=== PATIENT | female | born 1985 | race Two or more races ===

== ENCOUNTER 2017-03-15 08:52 | Day surgery (SDC) | payer OTHER ==
[2017-03-15] VITALS (10 sets, daily range): BP systolic 104–133; BP diastolic 62–81
[~2017-03-15] VITALS: Ht 154.9 cm; Wt 74.8 kg
[~2017-03-15 08:52] MED LIST: EXCEDRIN MIGRA1 EACH PO; Ketorolac 30mg Inj ONE; LR 1000ml ONE; Lidocaine 1% MPF 10mg/ml 5ml ONE; Metoclopramide 10mg/2ml Inj ONE; Midazolam 2mg/2ml Inj ONE; NS Irrig 1000ml ONE; Propofol 10mg/ml 20ml IV ONE; Sterile Water Irrig 1000ml IRRIG ONE; ceFAZolin sod 1 GM in NS 55 ML IVPB ONE; fentaNYL 100 mcg/2 mL IV ONE
[2017-03-15] MEDS ORDERED: Dexamethasone 4mg/ml vial ONE (09:08)
[2017-03-15] MEDS ORDERED: Betadine 10% Oint 15gm TOPIC ONE (09:08)
[2017-03-15] MEDS ORDERED: Lidocaine 1% Plain 30 ml INJ ONE (09:08)
[2017-03-15] MEDS ORDERED: Bacitracin 50000 Units Vial ONE (09:09)
[2017-03-15] MEDS ORDERED: Bupivacaine 0.25% Inj 30ml INJ ONE (09:09)
[2017-03-15] MEDS ORDERED: CLARITIN10 M2 ORAL (10:04)
[2017-03-15 10:07] LABS: BASOPHILS % (AUTO) 0.9 % (0.0-2.0); EOSINOPHILS % (AUTO) 0.9 % (0.0-3.0); LYMPHOCYTES % (AUTO) 35.7 % (20.0-45.0); MEAN CORPUSCULAR HEMOGLOBIN 29.6 PG (27.0-31.0); MEAN CORPUSCULAR HGB CONC 32.6 G/DL (32.0-36.0); MEAN CORPUSCULAR VOLUME 91 FL (80-99); MEAN PLATELET VOLUME 6.5 FL (6.5-10.1); MONOCYTES % (AUTO) 10.3 % (1.0-10.0); NEUTROPHILS % (AUTO) 52.1 % (45.0-75.0); PLATELET COUNT 295 K/UL (150-450); WHITE BLOOD COUNT 3.8 K/UL (4.8-10.8)
[2017-03-15 10:17] LABS: INR 0.9 (0.9-1.1); PROTHROMBIN TIME 9.5 SEC (9.30-11.50)
[2017-03-15 10:25] LABS: ANION GAP 14 (5-15); CALCIUM 9.1 mg/dL (8.6-10.2); CARBON DIOXIDE 20 mEQ/L (20-30); CHLORIDE 101 mEQ/L (98-107); CREATININE 0.8 mg/dL (0.5-0.9); GLOMERULAR FILTRATION RATE > 60 mL/min (>60); HEMOLYSIS 90; POTASSIUM 4.3 mEQ/L (3.4-4.9); SODIUM 135 mEQ/L (135-145)
--- NOTE | 2017-03-15 10:46 | Anethesia Preoperative Eval ---
Anesthesia Pre-op PMH/ROS General Date of Evaluation: Mar 15, 2017 Anesthesiologist: Eladio ASA Score: ASA 2 Mallampati Score Class I : Soft palate, uvula, fauces, pillars visible Class II: Soft palate, uvula, fauces visible Class III: Soft palate, base of uvula visible Class IV: Only hard plate visible Mallampati Classification: Class II Surgeon: Tobias Diagnosis: Right bunion and 3rd and 4th hammertoes Surgical Procedure: Right foot bunionectomy and 3rd and 4th hammertoe correction Anesthesia History: none Family History: no anesthesia problems Allergies: Coded Allergies: LATEX, NATURAL RUBBER (Verified Allergy, Intermediate, 03/14/17) hives Medications: see eMAR Past Medical History Cardiovascular: Reports: other - HLD, Denies: CAD, HTN, [place], arrhythmia, valve dz Pulmonary: Denies: COPD, HUY, asthma, other Gastrointestinal/Genitourinary: Reports: GERD, Denies: CRI, ESRD, other Neurologic/Psychiatric: Denies: CVA, TIA, dementia, depression/anxiety, other Endocrine: Denies: DM, hypothyroidism, other, steroids HEENT: Denies: DEERING (L), DEERING (R), cataract (L), cataract (R), glaucoma, other Hematology/Immune: Denies: DVT, anemia, bleeding disorder, other Musculoskeletal/Integumentary: Denies: DDD, DJD, OA, RA, edema, other PSxH Narrative: Right wrist sx Anesthesia Pre-op Phys. Exam Physician Exam Last Vital Signs Date Time Temp Pulse Resp B/P Pulse Ox O2 Delivery O2 Flow Rate FiO2 03/15/17 10:01 97.7 63 18 111/69 96 Room Air Constitutional: NAD Cardiovascular: RRR Respiratory: CTA Airway Exam Mallampati Score: Class II MO: full ROM: full Teeth: intact Anesthesia Pre-op A/P Labs Hematology Test 03/15/17 09:50 White Blood Count 3.8 K/UL (4.8-10.8) L Red Blood Count 4.70 M/UL (4.20-5.40) Hemoglobin 13.9 G/DL (12.0-16.0) Hematocrit 42.7 % (37.0-47.0) Mean Corpuscular Volume 91 FL (80-99) Mean Corpuscular Hemoglobin 29.6 PG (27.0-31.0) Mean Corpuscular Hemoglobin Concent 32.6 G/DL (32.0-36.0) Red Cell Distribution Width 12.0 % (11.6-14.8) Platelet Count 295 K/UL (150-450) Mean Platelet Volume 6.5 FL (6.5-10.1) Neutrophils (%) (Auto) 52.1 % (45.0-75.0) Lymphocytes (%) (Auto) 35.7 % (20.0-45.0) Monocytes (%) (Auto) 10.3 % (1.0-10.0) H Eosinophils (%) (Auto) 0.9 % (0.0-3.0) Basophils (%) (Auto) 0.9 % (0.0-2.0) Coagulation Test 03/15/17 09:50 Prothrombin Time 9.5 SEC (9.30-11.50) Prothromb Time International Ratio 0.9 (0.9-1.1) Activated Partial Thromboplast Time 25 SEC (23-33) Chemistry Test 03/15/17 09:50 Sodium Level 135 mEQ/L (135-145) Potassium Level 4.3 mEQ/L (3.4-4.9) Chloride Level 101 mEQ/L (98-107) Carbon Dioxide Level 20 mEQ/L (20-30) Anion Gap 14 (5-15) Blood Urea Nitrogen 10 mg/dL (7-23) Creatinine 0.8 mg/dL (0.5-0.9) Estimat Glomerular Filtration Rate > 60 mL/min (>60) Glucose Level 98 mg/dL (74-106) Calcium Level 9.1 mg/dL (8.6-10.2) Urine Test Test 03/15/17 09:05 Urine HCG, Qualitative Negative Studies Pre-op Studies: EKG - sr Risk Assessment & Plan Assessment: ASA II Plan: GA Status Change Before Surgery: No Pre-Antibiotics Drug: Ancef 1g Given Within 1 Hr of Incision: Yes Time Given: 11:20 SAL PORTER M.D. Mar 15, 2017 10:45
--- NOTE | 2017-03-15 11:01 | Pre-Procedure Note/Attestation ---
Pre-Procedure Note/Attestation Complete Prior to Procedure Planned Procedure: left Procedure Narrative: correction of bunion with screw fixation right foot . correction of hammer toe with arthroplasty and k-wire fixation right 3rd and 4rth. Indications for Procedure Pre-Operative Diagnosis: right foot painful bunion . 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 I attest that, if there was a reasonable possibility of needing a blood transfusion, the patient (or the patient's legal sales representative printing supplies) was given the [place] [employer] standardized written summary, pursuant to the Scott Judit Blood Safety Act ([place] Health and Safety Code # 1645, as amended). I attest that I re-evaluated the patient just prior to the surgery and that there has been no change in the patient's H&P, except as documented below: PAKO GUZMAN DPM Mar 15, 2017 11:01
[2017-03-15] MEDS ORDERED: LR 1000ml 1,000 ML IVLG SCH (11:39)
--- NOTE | 2017-03-15 11:39 | 48 Hour Post Anesthesia Eval ---
Post Anesthesia Evaluation Procedure: Right bunionectomy and 3rd and 4th hammertoe correction Date of Evaluation: Mar 15, 2017 Blood Pressure Systolic: 119 0: 71 Pulse Rate: 69 Respiratory Rate: 16 O2 Sat by Pulse Oximetry: 100 Airway: patent Nausea: No Vomiting: No Pain Intensity: 0 Hydration Status: adequate Cardiopulmonary Status: at baseline Mental Status/LOC: patient returned to baseline Post-Anesthesia Complications: 0 Follow-up care needed: ready to discharge SAL PORTER M.D. Mar 15, 2017 11:39
--- NOTE | 2017-03-15 11:39 | Immediate Post-Op Evaluation ---
Immediate Post-Op Evalulation Immediate Post-Op Evalulation Procedure: Right bunionectomy and 3rd and 4th hammertoe correction Date of Evaluation: Mar 15, 2017 Time of Evaluation: 13:44 IV Fluids: 600 Blood Products: 0 Estimated Blood Loss: 5 Urinary Output: 0 Blood Pressure Systolic: 107 Blood Pressure Diastolic: 65 Pulse Rate: 71 Respiratory Rate: 17 O2 Sat by Pulse Oximetry: 100 Temperature (Fahrenheit): 98.5 Pain Score (1-10): 0 Nausea: No Vomiting: No Complications 0 Patient Status: awake, reacts, patent, none Hydration Status: adequate Drug: Ancef 1g Given Within 1 Hr of Incision: Yes Time Given: 07:20 SAL PORTER M.D. Mar 15, 2017 11:39
[2017-03-15] MEDS ORDERED: DiphenhydrAMINE 50mg/ml Inj IVP PRN (11:45)
[2017-03-15] MEDS ORDERED: fentaNYL 100 mcg/2 mL IV PRN (11:45)
[2017-03-15] MEDS ORDERED: Hydromorphone 0.5mg/0.5ml inj IVP PRN (11:45)
[2017-03-15] MEDS ORDERED: Metoclopramide 10mg/2ml Inj IVP PRN (11:45)
[2017-03-15] MEDS ORDERED: Midazolam 2mg/2ml Inj IVP PRN (11:45)
[2017-03-15] MEDS ORDERED: Ketorolac 30mg Inj IV PRN (11:45)
--- NOTE | 2017-03-15 13:31 | Brief Operative Note ---
Immediate Post Operative Note Operative Note Pre-op Diagnosis: right foot painful bunion . Hammer toe 3rd and 4rth right Procedure: correction of bunion with screw fixation and osteotomy , 3rd and 4rth hammer toe arthroplasty with k-wire fixation Post-op Diagnosis: same as pre op Surgeon: pako butler dpm Anesthesiologist: darren Bello Anesthesia: MAC Specimen: yes Complications: none Condition: stable Estimated Blood Loss: none Drains: none Tourniquet time: 101 Implant(s) used?: Yes PAKO BUTLER DPM Mar 15, 2017 13:31
--- NOTE | 2017-03-15 15:10 | Diagnostic Imaging Report ---
Indication: Pain Comparison: None Findings: 3 views of the right foot were obtained. Plaster cast noted. This is a recent surgery for hallux valgus correction and bunionectomy. A distal first metatarsal osteotomy was performed. A fixation screw noted. K wires traversing the interphalangeal joints of the third and fourth rays demonstrated with resection of portions of the head of the proximal phalanges for hammertoe correction. Impression: Postoperative changes as described above
--- NOTE | 2017-03-16 17:01 | Pre-op HX & Phy Repo 2 SIG ---
DATE OF ADMISSION: 03/15/2017 PODIATRIC PREOPERATIVE HISTORY AND PHYSICAL DATE OF SURGERY: 03/15/2017 at [facility]. HISTORY OF PRESENT ILLNESS: This is a 31-year-old female with progressively worsening pain and deformity of the right foot. The right foot has a painful medial prominence of the first metatarsophalangeal joint and the pain and deformity have been progressively worsened. She also is complaining of bilateral pain on the third and fourth digit with hyperkeratotic tissue on the PIP joint from the toe hammering. The pain and deformity has been worsened during the past few years. She has tried numerous conservative therapies including massage, padding, offloading, shoe gear modification, and activity modification as well as consulting doctors, but she continued to experience daily pain. She reports no recent illness. No recurrent nausea, vomiting, fever, chills, or shortness of breath. PAST MEDICAL HISTORY: Noncontributory. PAST SURGICAL HISTORY: No pertinent findings. MEDICATIONS: Tramadol and Tylenol. ALLERGIES: No known drug allergies. SOCIAL HISTORY: Denies alcohol, tobacco, or illicit drug use. FAMILY HISTORY: No pertinent findings. PHYSICAL EXAMINATION: VITAL SIGNS: Temperature 97.7 degrees, pulse 64, respiratory rate is 18, blood pressure is 120/70, and O2 saturation is 98% on room temperature. DERMATOLOGICAL: No open lesion. Mild hyperkeratosis at the medial aspect of the right first metatarsophalangeal joint as well as the PIPJ of the third and fourth toe as well as hyperkeratotic tissue on third and second. NEUROLOGICAL: Sensation intact to light touch. VASCULAR: Dorsalis pedis and posterior tibial are not palpable. No edema or erythema noticed. MUSCULOSKELETAL: Bony prominence at the right first metatarsal head and is tender to palpation. The hallux is abducted from the midline of the body and abutting on second toe. Hammering of the third and fourth digit at the head of the proximal phalanx being dorsiflexed in the frontal plane. Full muscle strength noticed bilaterally. LABORATORY DATA: Urine HCG is negative. ASSESSMENT AND PLAN: This is a 31-year-old female with right foot progressively worsened pain, bunion, and hammertoe deformity. The patient has tried numerous conservative measures. However, she is still experiencing daily pain. Recommended surgery as a next step in management. The risks, benefits, and alternatives were discussed with the patient in detail who understands and would like to proceed with surgical intervention. All patient's questions and concerns have been addressed. Thai Collado D.P.M. DR: DAVID JOB#: [id number] CC:
--- NOTE | 2017-03-16 21:47 | Operative Note - Dictated ---
DATE OF OPERATION: 03/15/2017 SURGEON: Thai Collado D.P.M. ANESTHESIOLOGIST: Dr. Hendricks. PREOPERATIVE DIAGNOSES: 1. Painful bunion, right foot. 2. Hammertoe, third digit. 3. Hammertoe, fourth digit, right. PROCEDURE: 1. Right foot bunionectomy with osteotomy and screw fixation. 2. Correction of hammertoe with arthroplasty at the PIP joint. 3. Correction of hammertoe, fourth toe with arthroplasty and K-wire fixation. HEMOSTASIS: Pneumatic ankle tourniquet set at 250 mmHg. ESTIMATED BLOOD LOSS: Less than 5 mL. MATERIALS USED: A 2-0 Vicryl, 3-0 Vicryl, 4-0 Vicryl, and a 22 mm Vilex cannulated screw 3.0 diameter and 0.35 K-wire x2. Injectables: A 20 mL consisting of 1:1 mixture of 0.25% plain Marcaine and 1% plain lidocaine was injected into the right foot preoperatively to the area of surgical intervention. Intraoperatively, the patient was injected with 6 mL of plain Marcaine with 6 mL of 4 mg/mL dexamethasone at the end of the surgical case. PATHOLOGY: Bone was resected from the right first metatarsal as well as the head of the proximal phalanx of the third and fourth, was sent to pathology for further study. DRESSING: Incision site was covered with Xeroform, Betadine ointment, 4 x 4 gauze, Kerlix, and Coban. A forefoot cast was applied to the right foot. CONDITION: Stable. Description of Procedure: The patient was brought into the operating room and was assisted onto the operating table in supine position. She was padded well to avoid any excessive pressure. The patient was then given 1 g of Ancef before the start of surgery. A time-out was performed. Cotton padding and pneumatic 18-inch ankle tourniquet was placed about the patient's right ankle. Following IV sedation, a local anesthesia block was administered to the right foot using 20 mL of 1:1 mixture of 0.25% Marcaine plain and 1% lidocaine plain. The foot was then scrubbed, prepped, and draped in the usual aseptic manner. Attention was then directed to the right foot. An Esmarch bandage was then utilized to exsanguinate the patient's right foot and the pneumatic ankle tourniquet was then inflated to 250 mmHg. Local anesthesia was checked by pinching the patient's skin using a rat-tooth forceps. The patient did not react to the stimuli. A skin marking pen was then used to draw a planned incision site at the dorsal medial aspect of first metatarsophalangeal joint of the right foot. A 15 blade was then used to make an approximately 5 cm incision following the contour of the deformity. A new 15 blade was used to continue sharp and blunt dissection, which was carried down to the level of the joint capsule with care taken to retract all vital neurovascular structures. The soft tissue was then dissected to expose the head of the metatarsal. A 15 blade was then used to perform a lateral soft tissue release from the base of the proximal phalanx with all vital structures retracted and protected. Sagittal saw was then utilized to cut the medial eminence prominence. The bone was then passed from the operating site and sent to pathology for analysis. A modified Reverdin osteotomy was made at the first metatarsal head with a sagittal saw. The capital fragment was then shifted laterally and the osteotomy was held in place with a premeasured K-wire. The depth was measured and countersink. The K-wire went from proximal dorsal to distal plantar. A 22 mm 3-0 cannulated Vilex screw was then inserted into the head of the first metatarsal in of dorsal proximal to plantar distal orientation. The K-wire was then removed. The sagittal saw and rasp was then used to resect any overhanging bone or sharp edges. Visual inspection of proper alignment was made. It was noted that the joint has great motion. A copious amount of irrigation with normal saline and bacitracin was used to flush the surgical site. The joint capsule was then closed using 2-0 and 3-0 Vicryl. Subcutaneous tissue was closed using 4-0 Vicryl suture and the skin was subsequently closed using 4-0 nylon. At this time, attention was then directed to the fourth toe where hammering deformity was noticed occurring at the proximal interphalangeal joints with a soft corn being presented at that sight. A transverse double elliptical incision was made over the head of the proximal phalanx encompassing the quad. At this time, sharp and blunt dissection was continued onto the head of the proximal phalanx. With the linear capsulotomy, the head of the proximal phalanx was visualized. Approximately 3 mm of the head was osteotomized using a sagittal saw. Immediate reduction of the contraction was noticed at this time. At this point, 0.35 K-wire was driven into the base of the middle phalanx down to the tip of the toe and retracting back through the proximal phalanx not crossing the metatarsophalangeal joint. The K-wire was then bent, cut, and capped. Attention was directed to the joint and copious lavage was done. The extensor tendon was reapproximated and closed using 3-0 Vicryl and subsequently the skin was closed using 4-0 nylon. At this time, attention was then directed to the fourth toe and exact same procedure was done on third toe including the K-wire was done. The surgical sites were then injected with approximately 6 mL of plain Marcaine and 2 mL of 4 mg/mL of dexamethasone. The incision was then covered with Xeroform. Betadine ointment, 4 x 4, Kerlix, and Coban. Plaster to forefoot was then applied, the tourniquet was then deflated and immediate hyperemia was noted to digits 1 through 5. The patient tolerated the surgery and anesthesia well without any complications. She was then transported to the postoperative care unit and states no pain. The patient was reminded to take antibiotic, ibuprofen, and pain medication as directed. She was also instructed to keep her foot and leg elevated and dressings clean, dry, and intact. Radiograph, crutches, and postoperative shoe were ordered. The patient was able to partially bear weight on the right heel, but was advised to minimize standing and ambulation for the next 24 hours. The patient is to be discharged once medically cleared by anesthesiologist and to follow up with Dr. Collado in the next week. Thai Collado D.P.M. DR: ETELVINA JOB#: [id number] CC: DANYEL
--- NOTE | 2017-03-17 17:53 | Cardiology Report ---
APPROVED REPORT EKG Measurement Heart [id number] Sinus bradycardia Otherwise normal ECG
--- NOTE | 2017-03-18 08:28 | Diagnostic Imaging Report ---
Indication: Pain Comparison: None Findings: 3 views of the right foot were obtained. No acute fractures, malalignment, erosions or periostitis are identified. Bone mineralization is within normal limits. Soft tissues are unremarkable. Impression: Negative examination of the right foot.
== END 2017-03-15 15:00 | disposition home or self-care (01) ==
LOC: SUR 08:52
DX: M21.611 Bunion of right foot (principal); M20.41 Other hammer toe(s) (acquired), right foot; K21.9 Gastro-esophageal reflux disease without esophagitis; E78.5 Hyperlipidemia, unspecified; Z91.040 Latex allergy status
CPT/HCPCS: 28285; 28296; 36415; 73630; 80048; 81025; 85025; 85610; 85730; 93005; 97161; C1713; J0690; J1100; J1170; J1885; J2001; J2250; J2405; J2704; J2765; J3010; J3490; J7120; 94003; 94150